=== PATIENT | male | born 1995 | race Caucasian/White ===

== ENCOUNTER 2021-05-24 22:11 | Emergency (ER) | payer OTHER ==
[~2021-05-24] VITALS: Ht 175.3 cm; Wt 78.0 kg
[2021-05-24 22:19] VITALS: BP 148/78
[2021-05-24] MEDS ORDERED: LIDOCAINE 2%/EPI 1:100,000 20 ML VIAL. IJ ONE (23:00)
--- NOTE | 2021-05-24 23:05 | RAD ---
EXAMINATION: XR HAND_RIGHT 3 VIEWS CLINICAL HISTORY: 4th and 5th digit pain TECHNIQUE: XR HAND_RIGHT 3 VIEWS COMPARISON: None FINDINGS/ IMPRESSION: Joint spaces and alignment maintained. No acute fracture. No focal soft tissue swelling. Electronically signed by: Walt Albarado DO (05/24/2021 11:02 PM) [facility]
--- NOTE | 2021-05-24 23:16 | PHYS DOC ---
Past History Past Surgical History: No Surgical History General Adult EDM: Chief Complaint: FINGER INJURY HPI: HPI: Patient is a [age] year old [sex] who presents with [] Review of Systems: Review of Systems: Constitutional: Denies fever or chills Eyes: Denies redness or eye pain HENT: Denies nasal congestion or sore throat Respiratory: Denies cough or shortness of breath Cardiovascular: Denies chest pain or palpitations GI: Denies abdominal pain, nausea, or vomiting : Denies dysuria or hematuria Musculoskeletal: Denies back pain or joint pain Integument: Denies rash or skin lesions Neurologic: Denies headache, focal weakness or sensory changes Complete systems were reviewed and found to be within normal limits, except as documented in this note. Current Medications: Current Meds: Current Medications Medications (Trade) Dose Ordered Sig/Kera Start Time Stop Time Status Last Admin Dose Admin Lidocaine/ Epinephrine (Xylocaine 2%-Epi 1:100,000) 20 ml 1X ONCE 05/24/21 23:00 05/24/21 23:01 DC Allergies: Allergies: Allergies Coded Allergies Type Severity Reaction Last Updated Verified No Known Drug Allergies 05/24/21 No Physical Exam: PE: Constitutional: Well developed, well nourished, no acute distress, non-toxic appearance HENT: Normocephalic, atraumatic Eyes: PERRL, EOMI, conjunctiva normal, no discharge Neck: Normal range of motion, no tenderness, supple Lungs & Thorax: No respiratory distress, equal chest rise and fall Abdomen: Soft, no tenderness Skin: Warm, dry, no erythema, no rash Back: No tenderness, no CVA tenderness Extremities: No tenderness, ROM intact, no edema Neurologic: Alert and oriented X 3, normal motor function, normal sensory function, no focal deficits noted Psychologic: Affect normal, judgment normal Current Patient Data: Vital Signs: Vital Signs Date Time Temp Pulse Resp B/P (MAP) Pulse Ox O2 Delivery O2 Flow Rate FiO2 05/24/21 22:19 97.9 80 18 148/78 (101) 98 Room Air EKG: EKG: [] Radiology/Procedures: Radiology/Procedures: PROCEDURE: HAND RIGHT 3V EXAMINATION: XR HAND_RIGHT 3 VIEWS CLINICAL HISTORY: 4th and 5th digit pain TECHNIQUE: XR HAND_RIGHT 3 VIEWS COMPARISON: None FINDINGS/ IMPRESSION: Joint spaces and alignment maintained. No acute fracture. No focal soft tissue swelling. Electronically signed by: Walt Albarado DO (05/24/2021 11:02 PM) [facility] Heart Score: C/O Chest Pain: N/A Course & Med Decision Making: Course & Med Decision Making Pertinent Imaging studies reviewed. (See chart for details) Patient stable for discharge with outpatient follow-up with PCP/hand surgeon. Hand surgeon referral provided. Discussed findings and plan with patient, who acknowledges understanding and agreement. Dragon Disclaimer: Jimena Disclaimer: This electronic medical record was generated, in whole or in part, using a voice recognition dictation system. Splinting Splinting : Location: 4th and 5th fingers on right hand Pre-Made Type: metal (Aluminum finger splints) Post-Proc Neuro Vasc Exam: normal, unchanged from pre-exam Additional Procedures Progress Digital finger block- Right 4th and 5th digits: Verbal consent obtained. Time out performed. Hand hygiene utilized. Wound aviva aned with ChloraPrep. Anesthesia obtained via 4-nerve digital block by dorsal approach with a 25-gauge hypodermic needle utilizing at total of (2) mL's of lidocaine 2% with epinephrine to both 4th and 5th digit (4ml in total). Once adequate anesthesia was obtained, manipulation of fingers with traction utilized with successful improvement of trigger fingers. Aluminum splints applied. Patient tolerated procedure well and without difficulty. Departure Departure: Impression: Primary Impression: Trigger finger of right hand Qualified Codes: M65.30 - Trigger finger, unspecified finger Disposition: HOME / SELF CARE / HOMELESS Condition: STABLE Patient Instructions: Trigger Finger Additional Instructions: Please call Hand surgeon for further evaluation and treatment: Dr. Silvio Jaimes [id number] [place] [address] Take [id number] ibuprofen and or Tylenol for pain or discomfort. Utilize aluminum splints. ZHEN INMAN DO May 24, 2021 23:16
== END 2021-05-24 23:38 | disposition home or self-care (01) ==
LOC: ER 22:11 → EEVIPCON 22:11 → ER 23:38
DX: M65.341 Trigger finger, right ring finger (principal); M65.351 Trigger finger, right little finger
CPT/HCPCS: 29130; 64450; 73130; 99284